=== PATIENT | female | born 1965 | race Caucasian/White ===

== ENCOUNTER → 2016-07-09 | Outpatient (CLI) | payer BC ==
[~2016-07-09] MED LIST: CYCL10TA6 PO; GADAVIST IV PRN; INSDGIPEN SC; JNV100 PO; METF1TAB53 PO; OMEG10007 PO; ONDA8TAB62 UT; POTA20TA13 PO; POTTAB2 PO; REDCAP2 PO
--- NOTE | 2016-07-09 13:47 | DIAGNOSTIC IMAGING REPORT ---
MRI OF THE BRAIN COMBO CLINICAL HISTORY: Headache and left-sided numbness. COMPARISON STUDY: No priors. TECHNIQUE: MRI of the brain was performed utilizing various T1 and T2-weighted sequences in the axial, sagittal, and coronal planes. Contrast-enhanced sequences were acquired following the administration of 7.5 cc of Gadavist. FINDINGS: Brain parenchyma: There are scattered tiny foci of subcortical and periventricular microangiopathic change. The brain parenchyma is otherwise normal in appearance. There is no hemorrhage or mass effect. There is no restricted diffusion to suggest acute ischemia. No enhancing mass lesion is identified on the postcontrast images. Izaguirre-white matter differentiation is preserved. No extra-axial fluid collection is seen. The cerebellar tonsils are normal in configuration. Ventricles, sulci, and cisterns: Normal in configuration. Pituitary and sella: Unremarkable. Intracranial vasculature: Normal flow voids are maintained at the skull base. Orbits: The bony orbits are grossly intact. Orbital contents are normal in appearance. Sinuses and mastoids: Clear. Calvarium: Unremarkable. Cervical cord: Partially visualized cervical spinal cord is normal in morphology and signal intensity. IMPRESSION: No acute intracranial abnormality. Electronically signed by: Jeffrey Dawn M.D. 07/09/2016 1:46 PM Dictated Date/Time: 07/09/2016 1:43 PM
== END | disposition home or self-care (01) ==
LOC: C.MRI 12:32
PROVIDERS: ATTEND Psychiatry & Neurology Neurology
DX: R29.90 Unspecified symptoms and signs involving the nervous system (principal); R20.0 Anesthesia of skin; R51 Headache

== ENCOUNTER → 2016-10-21 | Outpatient (CLI) | payer BC ==
[~2016-10-21] MED LIST changes: -GADAVIST IV PRN
[2016-10-21 12:59] LABS: ALT/SGPT 58 U/L (12-78); AST/SGOT 27 U/L (15-37); BLOOD UREA NITROGEN 14 mg/dl (7-18); BUN/CREATININE RATIO 20.8 (10-20); CALCIUM 9.1 mg/dl (8.5-10.1); CARBON DIOXIDE 30 mmol/L (21-32); CHLORIDE 107 mmol/L (98-107); CHOLESTEROL 203 mg/dl (0-200); CREATININE 0.69 mg/dl (0.60-1.20); GLUCOSE 112 mg/dl (70-99); POTASSIUM 4.4 mmol/L (3.5-5.1); SODIUM 143 mmol/L (136-145)
[2016-10-21 13:02] LABS: ALB/GLOB RATIO 0.9 (0.9-2); ALKALINE PHOSPHATASE 100 U/L (45-117); CHOLESTEROL/HDL RATIO 2.9; HDL CHOLESTEROL 70 mg/dl; LDL CHOLESTEROL CALCULATED 108 mg/dl; TRIGLYCERIDES 127 mg/dl (0-150); VERY LOW DENSITY LIPOPROT CALC 25 mg/dl
[2016-10-21 13:15] LABS: ESTIMATED AVERAGE GLUCOSE 123 mg/dl; HA1C FLAG Normal (Normal)
== END | disposition home or self-care (01) ==
LOC: C.LABPBG 09:50
PROVIDERS: ATTEND Physician Assistant
DX: E11.9 Type 2 diabetes mellitus without complications (principal); I25.10 Atherosclerotic heart disease of native coronary artery without angina pectoris

== ENCOUNTER → 2017-04-28 | Outpatient (CLI) | payer BC ==
[2017-04-28 16:06] LABS: ALT/SGPT 36 U/L (12-78); AST/SGOT 15 U/L (15-37); BLOOD UREA NITROGEN 17 mg/dl (7-18); BUN/CREATININE RATIO 23.2 (10-20); CALCIUM 9.7 mg/dl (8.5-10.1); CARBON DIOXIDE 30 mmol/L (21-32); CHLORIDE 99 mmol/L (98-107); CREATININE 0.74 mg/dl (0.60-1.20); GLUCOSE 251 mg/dl (70-99); SODIUM 134 mmol/L (136-145)
[2017-04-28 16:16] LABS: ALB/GLOB RATIO 0.9 (0.9-2); ALKALINE PHOSPHATASE 170 U/L (45-117)
[2017-04-29 06:58] LABS: ESTIMATED AVERAGE GLUCOSE 166 mg/dl; HA1C FLAG Normal (Normal)
== END | disposition home or self-care (01) ==
LOC: C.LAB1850 14:10
PROVIDERS: ATTEND Internal Medicine
DX: E11.9 Type 2 diabetes mellitus without complications (principal)

== ENCOUNTER → 2017-06-15 | Outpatient (CLI) | payer BC ==
[~2017-06-15] MED LIST changes: +ASPI81TA28 PO; -CYCL10TA6 PO; +INSDGI SC; -INSDGIPEN SC; -JNV100 PO; -METF1TAB53 PO; +METF500T PO; +MULT-506 PO; -ONDA8TAB62 UT; -POTA20TA13 PO; -POTTAB2 PO
[2017-06-15 09:31] LABS: BASO % 0.2 %; BASO ABS # 0.02 K/uL (0-0.2); EOS % 1.1 %; EOS ABS # 0.13 K/uL (0-0.5); HEMATOCRIT 43.8 % (37-47); HEMOGLOBIN 14.6 g/dL (12.0-16.0); IG# 0.08 K/uL (0.00-0.02); LYMPH ABS # 2.86 K/uL (1.2-3.4); MEAN CELL VOLUME 87.1 fL (80-100); MEAN CORPUSCULAR HGB CONC 33.3 g/dl (32-36); MEAN PLATELET VOLUME 12.1 fL (7.4-10.4); MONO % 7.2 %; MONO ABS # 0.82 K/uL (0.11-0.59); NEUT % 65.8 %; NEUT ABS # 7.54 K/uL (1.4-6.5); PLATELET COUNT 224 K/uL (130-400); RED CELL DISTRIBUTION WIDTH CV 13.3 % (11.5-14.5); RED CELL DISTRIBUTION WIDTH SD 42.2 fL (36.4-46.3); WHITE BLOOD COUNT 11.45 K/uL (4.8-10.8)
[2017-06-15 10:06] LABS: BLOOD UREA NITROGEN 18 mg/dl (7-18); CALCIUM 9.5 mg/dl (8.5-10.1); CARBON DIOXIDE 25 mmol/L (21-32); CREATININE 0.87 mg/dl (0.60-1.20); GLUCOSE 354 mg/dl (70-99); POTASSIUM 3.4 mmol/L (3.5-5.1); SODIUM 135 mmol/L (136-145)
== END | disposition home or self-care (01) ==
LOC: C.CPL 06:47
PROVIDERS: ATTEND Orthopaedic Surgery
DX: Z01.812 Encounter for preprocedural laboratory examination (principal); Z01.810 Encounter for preprocedural cardiovascular examination; G56.22 Lesion of ulnar nerve, left upper limb; M25.522 Pain in left elbow

== ENCOUNTER → 2017-08-16 | Outpatient (CLI) | payer BC ==
[~2017-08-16] MED LIST changes: +HYDR-5688 PO
[2017-08-16 16:47] LABS: BASO % 0.2 %; BASO ABS # 0.02 K/uL (0-0.2); EOS % 1.5 %; EOS ABS # 0.13 K/uL (0-0.5); HEMATOCRIT 42.1 % (37-47); HEMOGLOBIN 13.9 g/dL (12.0-16.0); IG# 0.04 K/uL (0.00-0.02); LYMPH % 28.4 %; LYMPH ABS # 2.51 K/uL (1.2-3.4); MEAN CELL VOLUME 85.1 fL (80-100); MEAN CORPUSCULAR HEMOGLOBIN 28.1 pg (25-34); MEAN PLATELET VOLUME 10.9 fL (7.4-10.4); MONO % 5.2 %; MONO ABS # 0.46 K/uL (0.11-0.59); NEUT % 64.2 %; NEUT ABS # 5.67 K/uL (1.4-6.5); PLATELET COUNT 268 K/uL (130-400); RED CELL DISTRIBUTION WIDTH CV 13.1 % (11.5-14.5); RED CELL DISTRIBUTION WIDTH SD 40.7 fL (36.4-46.3); WHITE BLOOD COUNT 8.83 K/uL (4.8-10.8)
[2017-08-16 17:09] LABS: BLOOD UREA NITROGEN 13 mg/dl (7-18); CALCIUM 9.6 mg/dl (8.5-10.1); CARBON DIOXIDE 26 mmol/L (21-32); GLUCOSE 153 mg/dl (70-99); POTASSIUM 4.1 mmol/L (3.5-5.1); SODIUM 135 mmol/L (136-145)
== END | disposition home or self-care (01) ==
LOC: C.LABPBG 13:45
PROVIDERS: ATTEND Orthopaedic Surgery
DX: Z01.812 Encounter for preprocedural laboratory examination (principal); M25.522 Pain in left elbow

== ENCOUNTER → 2017-08-19 | Day surgery (SDC) | payer BC ==
[2017-06-04 14:06] VITALS: BMI 31.0
[2017-07-29 13:17] VITALS: Ht 160 cm; Wt 79.5 kg
[~2017-08-19] VITALS: Ht 160 cm; Wt 79.5 kg
[~2017-08-19] MED LIST changes: +ALBUT/IPRATROP 3MG/0.5MG NEB 3 ML VIAL ONE; +ATROPINE SULFATE 0.1 MG/ML 5ML SYR IV PRN; +BUPIVACAINE 0.25% 30 ML VIAL ONE; +CEFAZOLIN 2000MG IV PUSH 15 ML IV SCH; +CLINDAMYCIN PHOS 150 MG/ML 2 ML VIAL IV SCH; +DEXAMETHASONE SOD INJ 4 MG/ML VIAL ONE; +EpHEDrine SULFATE INJ 50 MG/ML AMP IV PRN; +EpINEphrine INJ 1MG/ML AMP 1 MG/ML AMP ONE; +FENTANYL CITRATE INJ 50 MCG/1 ML 2 ML VIAL IV PRN; +FENTANYL CITRATE INJ 50 MCG/1 ML 2 ML VIAL ONE; +HYDROCODONE/ACETAMIN 5/325MG TAB PO PRN; +LACTATED RINGER'S 1000ML 1,000 ML IV SCH; +LIDOCAINE HCL 2% 2 ML VIAL (20MG/ML) ONE; +METOPROLOL TARTRATE 1 MG/ML VIAL IV STA; +METOPROLOL TARTRATE 1 MG/ML VIAL ONE; +MIDAZOLAM HCL 1 MG/ML 2ML VIAL ONE; +ONDANSETRON INJ 2 MG/ML 2 ML VIAL IV PRN; +ONDANSETRON INJ 2 MG/ML 2 ML VIAL ONE; +PROPOFOL IV EMULSION 10 MG/ML 20 ML VIAL IV ONE; +SCOPOLAMINE 1.5 MG TDSY TD ONE; +SODIUM CHLORIDE 0.9% 1000ML 1,000 ML IV SCH
--- NOTE | 2017-08-19 06:56 | History & Physical Bridge Note ---
H&P Re-Evaluation Bridge Note: I have examined the patient, reviewed the History & Physical and in the interval since the performance of the History & Physical I have noted the following changes of clinical significance: No changes noted
--- NOTE | 2017-08-19 07:41 | [facility] Post Operative Brief Note ---
Immediate Operative Summary Operative Date Aug 19, 2017. Pre-Operative Diagnosis Left Ulnar Nerve Lesion, Pain in Elbow Post-Operative Diagnosis Same Procedure(s) Performed Left Cubital Tunnel Release Surgeon Dr. Demond Leon Legal Billing Specialist Surgeon(s) None Estimated Blood Loss 10cc Findings Consistent with Post-Op Diagnosis Specimens None Drains None Anesthesia Type General Complication(s) none Disposition Disposition: Recovery Room / PACU
--- NOTE | 2017-08-19 07:53 | Discharge Instructions-SurgCtr ---
Discharge Instructions Date of Service Aug 19, 2017. Visit Reason for Visit: Left Ulnar Nerve Lesion; Pain In Elbow Discharge Discharge Diagnosis / Problem: SAME ABOVE Discharge Goals Goal(s): Decrease discomfort, Improve function Medications Stopped Medications Name(s): ASA and Fish oil stopped 1 month ago Restart Stopped Medication(s): SEPTEMBER RESTART 08/19/2017 Activity Recommendations Activity Limitations: as noted below Lifting Limitations: until after follow-up appointment Exercise/Sports Limitations: until after follow-up appointment Shower/Bathe: may shower/bathe in 3 days Anesthesia . Post Anesthesia Instructions: If you have had General Anesthesia or IV Sedation: * Do not drive today. * Resume driving when surgeon permits. * Do not make important decisions or sign legal documents today. * Call surgeon for: 1. Temperature elevations greater than 101 degrees F. 2. Uncontrollable pain. 3. Excessive bleeding. 4. Persistent nausea and vomiting. 5. Medication intolerance (nausea, vomiting or rash). * For nausea and vomiting use only clear liquids such as: tea, soda, bouillon until nausea subsides, then gradually increase diet as tolerated. * If you have any concerns or questions, call your surgeon's office. If physician is unavailable and it is an emergency, call 911 or go to the nearest emergency room. . Instructions / Follow-Up Instructions / Follow-Up MEDICATIONS: * Resume previous medications unless instructed otherwise by your surgeon. * Always take pain medication on a full stomach or with food to avoid upset stomach. * Do not drink alcohol or drive while taking narcotics. * Ibuprofen or Tylenol may be taken if narcotic not needed. SPECIAL CARE INSTRUCTIONS: __ None _X_ Keep extremity elevated and iced x 48 hours; apply ice 20-30 minutes 8-10 times/day. May remove at night. _X_ Sling (WEAR FOR COMFORT ONLY) __24 hrs/day __ Remove at night __ Shoulder Immobilizer __ 24 hrs/day __ Remove at night _X_ Dressing __ Maintain until seen in office, may shower with plastic over site _X_ Remove dressings in 72 hours and then may shower _X_ Cover incisions with band-aids after showering __ Do not remove steri-strips Call physician if chills or temperature rises above 102 degrees or pain unrelieved by prescribed pain medications at . . Diet Recommendations Home Diet: no limitations Fluid Restriction: None Procedures Procedures Performed: Left Cubital Tunnel Release Pending Studies Studies pending at discharge: no Work Instructions Return To Work: after follow-up Medical Emergencies . Who to Call and When: Medical Emergencies: If at any time you feel your situation is an emergency, please call 911 immediately. . Non-Emergent Contact Non-Emergency issues call your: Primary Care Provider Call Non-Emergent contact if: you have a fever, temperature is above 101.5 . . "Provider Documentation" section prepared by Timmy Chapman. .
[2017-08-19] MEDS: ONDANSETRON INJ 2 MG/ML 2 ML VIAL ONE ×2 (08:33→08:40)
--- NOTE | 2017-08-19 08:48 | OPERATIVE REPORT ---
DATE OF OPERATION: 08/19/2017 PREOPERATIVE DIAGNOSIS: Left cubital tunnel syndrome. POSTOPERATIVE DIAGNOSIS: Same. PROCEDURE: Open left cubital tunnel release in situ. SURGEON: Dr. Bill Leon. PARTS COUNTER SPECIALIST: Jeancarlos Chapman PA-C, whose assistance was necessary for positioning the arm, retraction and closure. ANESTHESIA: General. COMPLICATION: None. CONDITION: Stable to PACU. INDICATIONS: Saritha is a 51-year-old female who fell about 18 months ago. She has been having numbness in her left hand since. The numbness is constant. She had an EMG study which was diagnostic for cubital tunnel syndrome of the left elbow. When she came to my office with constant numbness, we elected to proceed with open cubital tunnel release in situ. OPERATION AND FINDINGS: On 08/19/2017, she arrived at [facility] for the above procedure. She was seen in the preoperative holding and the operative extremity was identified and signed. She was given a preoperative antibiotic and taken back to the operating room, laid on table in supine position and put under general anesthesia. The left elbow was then prepped and draped in sterile fashion. Timeout was done. The patient and operative extremity was properly identified. A curvilinear incision was made over the medial epicondyle. Dissection was taken down through the fascia with care not to disrupt the cutaneous nerves. Drummond's fascia was easily identified. The fascia was then released and the ulnar nerve was identified. The nerve was then released distally through the flexor pronator mass and care was taken to ensure complete release distally. The nerve was then released more proximally up, just posterior to the intermuscular septum. Care was also taken to ensure complete release of the nerve proximally. The nerve was completely released. The elbow was flexed and the nerve did not subluxate over the medial epicondyle. Once I was happy with the overall release, the wound was then irrigated and surrounding soft tissues were injected with 0.25% Marcaine with epinephrine. The tourniquet was deflated. Hemostasis was controlled. Skin was closed with 3-0 Vicryl and a 4-0 nylon suture. She was then placed in a soft dressing and extubated and taken to the postanesthesia care unit in stable condition. She tolerated the procedure well. I attest to the content of the Intraoperative Record and any orders documented therein. Any exception s are noted below.
[2017-08-19 09:12] VITALS: TEMP 36.5
[2017-08-19 09:27] VITALS: BP 127/85; PULSE 92; O2SAT 96
--- NOTE | 2017-08-19 09:47 | Anesthesia Progress Nt - [facility] ---
Anesthesia Post Op Note Date & Time Aug 19, 2017 at 09:47 Vital Signs Pain Intensity: 0 Vital Signs Past 12 Hours Date Time Temp Pulse Resp B/P (MAP) Pulse Ox O2 Delivery O2 Flow Rate FiO2 08/19/17 09:27 92 16 127/85 (99) 96 Room Air 08/19/17 09:12 36.5 91 16 124/87 (99) 95 Room Air 08/19/17 09:05 36.8 08/19/17 09:00 90 08/19/17 09:00 90 95 08/19/17 08:55 92 118/81 (104) 96 08/19/17 08:55 92 08/19/17 08:51 134/89 (93) 08/19/17 08:50 89 08/19/17 08:50 89 96 08/19/17 08:46 106/90 (96) 08/19/17 08:45 91 97 08/19/17 08:45 91 08/19/17 08:40 Room Air 08/19/17 08:40 89 08/19/17 08:40 89 102/77 (88) 97 08/19/17 08:35 90 23 126/81 (92) 95 08/19/17 08:35 90 23 08/19/17 08:35 93 133/81 08/19/17 08:30 95 22 08/19/17 08:30 97 22 123/74 (93) 96 08/19/17 08:27 133/81 (89) 08/19/17 08:25 102 15 08/19/17 08:25 15 08/19/17 08:10 103 27 134/84 (95) 08/19/17 08:10 27 08/19/17 08:05 103 19 08/19/17 08:05 103 19 135/91 (110) 97 08/19/17 08:00 99 22 08/19/17 08:00 100 22 141/101 (108) 96 08/19/17 07:53 36.2 93 20 163/109 95 Diffusion Mask 5 08/19/17 06:30 36.5 105 20 122/88 (99) 95 Room Air Notes Mental Status: alert / awake / arousable, participated in evaluation Pt Amnestic to Procedure: Yes Nausea / Vomiting: adequately controlled Pain: adequately controlled Airway Patency, RR, SpO2: stable & adequate BP & HR: stable & adequate Hydration State: stable & adequate Anesthetic Complications: no major complications apparent
== END | disposition home or self-care (01) ==
LOC: X.SURG 06:06
PROVIDERS: ATTEND Orthopaedic Surgery
DX: G56.22 Lesion of ulnar nerve, left upper limb (principal); I25.2 Old myocardial infarction; E11.9 Type 2 diabetes mellitus without complications; E66.9 Obesity, unspecified; Z79.4 Long term (current) use of insulin; F17.200 Nicotine dependence, unspecified, uncomplicated; Z88.0 Allergy status to penicillin

== ENCOUNTER 2017-09-10 15:05 | Emergency (ER) | payer BC ==
[~2017-09-10] VITALS: Ht 160 cm; Wt 88.0 kg
[~2017-09-10 15:05] MED LIST changes: -ALBUT/IPRATROP 3MG/0.5MG NEB 3 ML VIAL ONE; -ATROPINE SULFATE 0.1 MG/ML 5ML SYR IV PRN; -BUPIVACAINE 0.25% 30 ML VIAL ONE; -CEFAZOLIN 2000MG IV PUSH 15 ML IV SCH; -CLINDAMYCIN PHOS 150 MG/ML 2 ML VIAL IV SCH; -DEXAMETHASONE SOD INJ 4 MG/ML VIAL ONE; -EpHEDrine SULFATE INJ 50 MG/ML AMP IV PRN; -EpINEphrine INJ 1MG/ML AMP 1 MG/ML AMP ONE; -FENTANYL CITRATE INJ 50 MCG/1 ML 2 ML VIAL IV PRN; -FENTANYL CITRATE INJ 50 MCG/1 ML 2 ML VIAL ONE; -HYDROCODONE/ACETAMIN 5/325MG TAB PO PRN; -LACTATED RINGER'S 1000ML 1,000 ML IV SCH; -LIDOCAINE HCL 2% 2 ML VIAL (20MG/ML) ONE; -METOPROLOL TARTRATE 1 MG/ML VIAL IV STA; -METOPROLOL TARTRATE 1 MG/ML VIAL ONE; -MIDAZOLAM HCL 1 MG/ML 2ML VIAL ONE; -ONDANSETRON INJ 2 MG/ML 2 ML VIAL IV PRN; -ONDANSETRON INJ 2 MG/ML 2 ML VIAL ONE; -PROPOFOL IV EMULSION 10 MG/ML 20 ML VIAL IV ONE; -SCOPOLAMINE 1.5 MG TDSY TD ONE; -SODIUM CHLORIDE 0.9% 1000ML 1,000 ML IV SCH
[2017-09-10 15:10] VITALS: TEMP 36.8; Ht 160 cm; Wt 88.0 kg
[2017-09-10] MEDS ORDERED: NITROGLYCERIN 2% OINTMENT 30GM TUBE EXT ONE (15:30)
[2017-09-10 15:43] LABS: INR 0.9 (0.9-1.1); PTT PATIENT 27.6 SECONDS (21.0-31.0)
--- NOTE | 2017-09-10 15:43 | DIAGNOSTIC IMAGING REPORT ---
CHEST ONE VIEW PORTABLE CLINICAL HISTORY: 52 years-old Female presenting with cp. TECHNIQUE: Portable upright AP view of the chest was obtained. COMPARISON: 02/27/2016. FINDINGS: Atherosclerosis of the aortic arch. Cardiac silhouette top normal in size. No focal opacity. No large effusion or pneumothorax. Osseous structures normal. Upper abdomen normal. IMPRESSION: 1. No acute cardiopulmonary disease. Electronically signed by: David Angela M.D. 09/10/2017 3:42 PM Dictated Date/Time: 09/10/2017 3:41 PM
[2017-09-10 15:44] LABS: HEMATOCRIT 43.9 % (37-47); MEAN CELL VOLUME 84.3 fL (80-100); MEAN CORPUSCULAR HEMOGLOBIN 28.8 pg (25-34); MEAN CORPUSCULAR HGB CONC 34.2 g/dl (32-36); MEAN PLATELET VOLUME 10.2 fL (7.4-10.4); PLATELET COUNT 312 K/uL (130-400); RED CELL DISTRIBUTION WIDTH CV 13.2 % (11.5-14.5); RED CELL DISTRIBUTION WIDTH SD 40.2 fL (36.4-46.3); WHITE BLOOD COUNT 8.93 K/uL (4.8-10.8)
[2017-09-10 15:59] LABS: ALBUMIN 3.9 gm/dl (3.4-5.0); CALCIUM 9.7 mg/dl (8.5-10.1); CREATININE 0.67 mg/dl (0.60-1.20); POTASSIUM 3.6 mmol/L (3.5-5.1)
[2017-09-10 16:03] LABS: CKMB 1.4 ng/ml (0.5-3.6); TOTAL PROTEIN 7.9 gm/dl (6.4-8.2)
[2017-09-10] MEDS ORDERED: METF1000 PO (16:10)
[2017-09-10] MEDS ORDERED: HYDR-5688 PO (16:10)
[2017-09-10 16:33] VITALS: O2SAT 96
[2017-09-10 16:56] VITALS: BP 120/96; PULSE 96; O2SAT 98
--- NOTE | 2017-09-10 18:54 | EMERGENCY ROOM VISIT NOTE ---
History Report prepared by Katiuska: Anna Parks Under the Supervision of: Dr. Jeffrey Valencia M.D. First contact with patient: 15:20 Chief Complaint: CHEST PAIN Stated Complaint: CHEST PAIN - CARDIAC HX Nursing Triage Summary: patient to Ed via triage for ongoing chest pain, states "I've had some chest pain for 2-3 months now, today it went into my left arm. Can't really describe it but its a ten. I took 324 asa and it helped with the chest pain." Stent placement in LAD 2012 surgery left elbow 2 weeks CHECKER History of Present Illness The patient is a 52 year old female who presents to the Emergency Room with complaints of intermittent chest pain starting 2-3 months ago. The patient has been having an ache in the left side of her chest which occurred intermittently for the past 2-3 months. Today, she started having an intermittent stabbing pain in her left chest. This worsened and then she started having pain and numbness in her left arm. She rates her discomfort as a 7/10 at worst. She took 4 baby aspirin 2 hours ago. She did not have any nitro. She was nauseous with the pain. Her symptoms did not worsen with exertion or improve with rest. She is currently not having any chest pain, but her left arm is still numb. The chest pain lasted for 1-1.5 hours. She denies any SOB, vomiting, or diaphoresis. She has a history of IA in May 2012 and has a stent in her LAD. She had been feeling well since then. She denies any history of CABG. She had left elbow surgery recently. She has an appointment with cardiology next week. She has a history of diabetes. Source of History: patient Onset: 2-3 months ago Position: chest (left) Symptom Intensity: 7/10 Quality: stabbing Timing: intermittent Associated Symptoms: + nausea, + numbness, No diaphoresis, No SOB, No vomiting Note: Pt reports left arm pain. Review of Systems See HPI for pertinent positives & negatives. A total of 10 systems reviewed and were otherwise negative. Past Medical & Surgical Medical Problems: (1) CAD (coronary artery disease) (2) Chest pain (3) Diabetes mellitus type 2 in obese (4) DKA (diabetic ketoacidosis) (5) Dyslipidemia (6) Hx of myocardial infarction (7) Hyperglycemia (8) Presence of stent in LAD coronary artery (9) Tobacco abuse Surgical Problems: (1) History of cholecystectomy (2) History of hysterectomy Family History Diabetes mellitus FATHER MOTHER FH: CAD (coronary artery disease) FATHER Hypertension Kidney disease Social History Smoking Status: Current Every Day Smoker Alcohol Use: none Drug Use: none Marital Status: Housing Status: lives with family Current/Historical Medications Scheduled Aspirin (Aspirin Ec), 81 MG PO DAILY Fish Oil (O'Brien-3), 1 CAP PO DAILY Insulin Glargine (Lantus), 26 UNITS SC BID Metformin Hcl (Glucophage), 1,000 MG PO BID Multivitamin (Multivitamin), 1 TAB PO DAILY Red Yeast Rice Extract (Red Yeast Rice), 600 MG PO DAILY Scheduled PRN Hydrocodone/Acetaminophen 5MG/325MG ([place] 5MG/325MG), 1 TABLET PO Q6H PRN for Pain Allergies Coded Allergies: Penicillins (Verified Allergy, Unknown, JOINTS/BONE STIFFNESS, 09/10/17) Physical Exam Vital Signs Date Time Temp Pulse Resp B/P (MAP) Pulse Ox O2 Delivery O2 Flow Rate FiO2 09/10/17 16:56 96 20 120/96 98 09/10/17 16:34 95 20 130/89 98 Room Air 09/10/17 16:33 96 Room Air 09/10/17 15:12 99 Room Air 09/10/17 15:10 36.8 116 20 165/98 96 Room Air Physical Exam GENERAL: Patient is in no acute distress. HEENT: No acute trauma, normocephalic atraumatic, mucous membranes moist, no nasal congestion, no scleral icterus. NECK: No stridor, no adenopathy, no meningismus, trachea is midline. CHEST: Nontender chest wall. LUNGS: Clear to auscultation bilaterally, no wheeze, no rhonchi, breath sounds equal. HEART: Without murmurs gallops or rubs, regular rate and rhythm. ABDOMEN: Soft, nontender, bowel sounds positive, no hernias, no peritonitis. EXTREMITIES: No cyanosis or edema, full range of motion of all the joints without pain or difficulty, no signs for acute trauma. Left posterior elbow incision is healing without signs of infection. NEUROLOGIC: Oriented x 3, no acute motor or sensory deficits, no focal weakness. SKIN: No rash, no jaundice, no diaphoresis. Medical Decision & Procedures ER Provider Diagnostic Interpretation: X-ray results as stated below per interpretation by wy and the radiologist: CHEST ONE VIEW PORTABLE CLINICAL HISTORY: 52 years-old Female presenting with cp. TECHNIQUE: Portable upright AP view of the chest was obtained. COMPARISON: 02/27/2016. FINDINGS: Atherosclerosis of the aortic arch. Cardiac silhouette top normal in size. No focal opacity. No large effusion or pneumothorax. Osseous structures normal. Upper abdomen normal. IMPRESSION: 1. No acute cardiopulmonary disease. Electronically signed by: David Angela M.D. 09/10/2017 3:42 PM Dictated Date/Time: 09/10/2017 3:41 PM Laboratory Results 09/10/17 14:19 09/10/17 14:19 Test 09/10/17 14:19 09/10/17 15:28 Red Blood Count 5.21 M/uL (4.2-5.4) Mean Corpuscular Volume 84.3 fL (80-100) Mean Corpuscular Hemoglobin 28.8 pg (25-34) Mean Corpuscular Hemoglobin Concent 34.2 g/dl (32-36) RDW Standard Deviation 40.2 fL (36.4-46.3) RDW Coefficient of Variation 13.2 % (11.5-14.5) Mean Platelet Volume 10.2 fL (7.4-10.4) Prothrombin Time 9.9 SECONDS (9.0-12.0) Prothromb Time International Ratio 0.9 (0.9-1.1) Activated Partial Thromboplast Time 27.6 SECONDS (21.0-31.0) Partial Thromboplastin Ratio 1.1 Anion Gap 6.0 mmol/L (3-11) Est Creatinine Clear Calc Drug Dose 103.3 ml/min Estimated GFR () 117.1 Estimated GFR (Non- 101.1 BUN/Creatinine Ratio 18.3 (10-20) Calcium Level 9.7 mg/dl (8.5-10.1) Total Bilirubin 0.4 mg/dl (0.2-1) Aspartate Amino Transf (AST/SGOT) 16 U/L (15-37) Alanine Aminotransferase (ALT/SGPT) 33 U/L (12-78) Alkaline Phosphatase 139 U/L (45-117) Total Creatine Kinase 72 U/L (26-192) Creatine Kinase MB 1.4 ng/ml (0.5-3.6) Creatine Kinase MB Ratio 1.9 (0-3.0) Total Protein 7.9 gm/dl (6.4-8.2) Albumin 3.9 gm/dl (3.4-5.0) Globulin 4.0 gm/dl (2.5-4.0) Albumin/Globulin Ratio 1.0 (0.9-2) Bedside Troponin I < 0.030 ng/ml (0-0.045) Laboratory results reviewed by me. Medications Administered Medications (Trade) Dose Ordered Sig/Malcolm Route Start Time Stop Time Status Last Admin Dose Admin Nitroglycerin (Nitroglycerin 2% Oint) 1 inch NOW ONCE EXT 09/10/17 15:30 09/10/17 15:31 DC 09/10/17 16:30 1 INCH ECG Per My Interpretation Indication: chest pain Rate (beats per minute): 100 Rhythm: normal sinus Findings: no ectopy, other (LVH, no ST elevation, no PVC) ED Course 1524: The patient was evaluated in room C7. A complete history and physical exam was performed. 1530: Nitroglycerin 1 inch EXT. 1622: I reevaluated the patient. She is doing well. 1634: I discussed the patient's case with Dr. Sagastume, [facility] cardiology. He recommends that the patient stay for rule out. 1638: I reevaluated the patient. She would not like to stay in the hospital. She and her significant other understand the risks of having another heart attack. They would still like to go home. I discussed results and discharge instructions: she verbalized understanding and agreement. The patient is ready for discharge. Medical Decision Differential diagnoses considered include musculoskeletal pain, IA, angina, pneumonia, pneumothorax, PE, aortic dissection, reflux. There is no leukocytosis or concerning anemia. No significant electrolyte abnormality, kidney failure or hepatitis. EKG shows a normal sinus rhythm without acute ischemia. Cardiac enzyme testing 1 is not consistent with acute cardiac injury. Chest x-ray does not show pneumonia, mediastinal widening or pneumothorax. Patient presents with chest pain ongoing for a few months. The pain seemed worse today. She had already taken oral aspirin prior to arrival. She was given some Nitropaste while in the ED. I did discuss the case with cardiology. A hospital stay for cardiac rule out was felt warranted. The patient decided that she was not staying. She understands the risks of going home. She feels she was more anxious than anything about her discomfort. She states that her pain does not feel like her previous IA. Patient understands the risks of going home including the risk of . She has agreed to return for any worsening pain or worsening symptoms. She will follow with cardiology as scheduled in a few days. At this point, the cause for the pain is not completely clear. Medication Reconcilliation Current Medication List: was personally reviewed by me Blood Pressure Screening Patient's blood pressure: Elevated blood pressure Blood pressure disposition: Referred to PCP Consults Time Called: [phone] Consulting Physician: Dr. Sagastume, [facility] cardiology Returned Call: [phone] I discussed the patient's case with him. He recommends that the patient stay for rule out. Impression Primary Impression: Precordial chest pain Scribe Attestation The scribe's documentation has been prepared under my direction and personally reviewed by me in its entirety. I confirm that the note above accurately reflects all work, treatment, procedures, and medical decision making performed by me. Departure Information Dispostion Home / Self-Care Referrals RV. Broussard MD (PCP) Forms Call Back Authorization, HOME CARE DOCUMENTATION FORM, IMPORTANT VISIT INFORMATION Patient Instructions [facility] Additional Instructions aspirin daily rest return if worsening as we discussed see cardiology as discussed admission was recommended today but you have chosen to go home, you are at risk for a heart attack as we discussed, please return for persistent or worsening symptoms
== END 2017-09-10 16:57 | disposition home or self-care (01) ==
LOC: C.EDB 15:06 → C.EDC 16:57
DX: R07.2 Precordial pain (principal); R20.0 Anesthesia of skin; R11.0 Nausea; I25.2 Old myocardial infarction; E11.9 Type 2 diabetes mellitus without complications; E78.5 Hyperlipidemia, unspecified; Z79.82 Long term (current) use of aspirin; Z79.84 Long term (current) use of oral hypoglycemic drugs; Z79.899 Other long term (current) drug therapy; Z95.5 Presence of coronary angioplasty implant and graft; Z82.49 Family history of ischemic heart disease and other diseases of the circulatory system; Z83.3 Family history of diabetes mellitus; F17.200 Nicotine dependence, unspecified, uncomplicated